=== PATIENT | female | born 1970 | race Caucasian/White ===

== ENCOUNTER 2017-01-10 17:02 | Emergency (ER) | payer OTHER ==
[2017-01-10] MEDS ORDERED: Lidocaine 1% 5ml(IM or SUTURE)(PAIN CLINIC) ONE (17:26)
[2017-01-10] MEDS: Lidocaine 1% 5ml(IM or SUTURE)(PAIN CLINIC) IJ ONE (17:38)
[2017-01-10] MEDS: DIPH,PERTUSS(ACELL),TET VAC/PF 0.5 ML DISP.SYRIN IM ONE (18:02)
[2017-01-10 18:05] VITALS: BP 123/92
--- NOTE | 2017-03-03 13:53 | ED Physician Documentation ---
Facial/Scalp Injury - HISTORIAN Historian: patient - HPI Stated Complaint: kicked by a horse Chief Complaint: Laceration/Recheck/Suture Additional Information: kicked by horse 1650 hrs 1 cm lac lower lip-involves [place] Where: home Timing: still present Context: direct blow Severity: mild, moderate Further Comments: yes (no other apparent sig injury) - ROS CONST: no problems CVS/RESP: none EYES/ENT: none GI/: none - PAST HX Past History: none Immunizations: denies: UTD Medications: see nurse note - SOCIAL HX Smoking History: non-smoker Alcohol Use: none Drug Use: none - FAMILY HX Family History: No - VITAL SIGNS Vital Signs: Vital Signs Temp Pulse Resp BP Pulse Ox 99.3 F 100 H 16 123/92 96 01/10/17 17:16 01/10/17 18:03 01/10/17 18:03 01/10/17 18:03 01/10/17 18:03 ED Results Lab/Radiology - Orders Orders: ED Orders Category Date Time Status Diph,Pertuss(Acell),Tet Vac/Pf [Adacel] Med 01/10/17 17:12 Discontinued 0.5 ml IM .ONCE ONE Lidocaine 1% 5ml(IM or SUTURE) [Xylocaine] Med 01/10/17 17:26 Discontinued 50 mg .ROUTE .STK-MED ONE Lidocaine 1% 5ml(IM or SUTURE) [Xylocaine] Med 01/10/17 17:35 Discontinued 50 mg IJ NOW ONE Facial Injury Physical Exam - Physical Exam General Appearance: mild distress Head: non-tender Neck: non-tender Nexus Criteria: Nexus criteria neg Eye: No: lids nml (1 cm lac) ENT: nml external exam Neuro/Psych: oriented x3 Respiratory: chest non-tender, no ecchymosis, breath sounds nml, no resp. distress, heart sounds nml CVS: reg. rate & rhythm, heart sounds nml Abdomen: non-tender Extremities: non-tender Discharge Clincal Impression: laceration lower lip Referrals: Vitor Rucker DO [Primary Care Provider] - 2 Days Home Medications: Ambulatory Orders Alprazolam [Xanax] 0.25 mg PO PRN 01/10/17 Citalopram Hydrobromide [Celexa] 20 mg PO QD 01/10/17 Comments: sutured keep dry clean sutures out 4-6 days Condition: Good Disposition: 01 HOME, SELF-CARE Decision to Admit: NO Decision Time: 17:58
== END 2017-01-10 18:03 | disposition home or self-care (01) ==
LOC: ED 17:02
DX: S01.511A Laceration without foreign body of lip, initial encounter (principal); W55.12XA Struck by horse, initial encounter; Y93.9 Activity, unspecified; Y92.9 Unspecified place or not applicable; Y99.9 Unspecified external cause status
CPT/HCPCS: 12011; 90471; 90715; 99283